=== PATIENT | female | born 1940 | race Caucasian/White ===

== ENCOUNTER 2017-12-02 18:05 | Observation (INO) ==
--- NOTE | 2017-12-02 18:14 | Emergency Department Note ---
Disposition Clinical Impression: Chest pain Disposition: Admitted As Inpatient Condition: Good Chest Pain HPI - General Chief Complaint: ED Chest Pain Stated Complaint: Midsternal chest pain onset 1 hour Time Seen by Provider: 12/02/17 18:05 Source: patient Mode of arrival: ambulatory Limitations: no limitations Vital Signs Reviewed: Yes Nursing Notes Reviewed: Yes - History of Present Illness HPI Narrative: Patient presents emergency department after being seen at the urgent care for 1 hour of chest pain. It is usually associated with eating a meal. She has had this for quite some time but never had it worked up. Today is a first time she has sought medical care for this chest pain. She denies any radiation of pain a station her midsternal region. She associates the pain with a hiatal hernia that she has had for some time and that the "spells' are getting worse. Onset (ago): hour(s) (1) Duration: constant Onset: during rest, after eating Pain Location: substernal Severity: moderate - Related Data Home Medications Medication Instructions Recorded Confirmed Fluticasone/Salmeterol [Advair 1 each IH BID 05/20/17 12/02/17 100-50 Diskus] Montelukast [Singulair] 10 mg PO DAILY 05/20/17 12/02/17 Nebivolol [Bystolic] 5 mg PO DAILY 05/21/17 12/02/17 Omeprazole [PriLOSEC] 40 mg PO DAILY 05/21/17 12/02/17 Propylene Glycol/Peg 400 [Systane 15 ml OP DAILY 05/21/17 12/02/17 0.3-0.4% Eye Drops] Triamterene/HCTZ 37.5/25mg 1 each PO DAILY 05/21/17 12/02/17 [Dyazide] Vit A/Vit C/Vit E/Zinc/Copper 1 each PO DAILY 05/21/17 12/02/17 [Preservision Areds Tablet] Vitamin E 1,000 unit PO DAILY 05/21/17 12/02/17 Aspirin 325 mg PO DAILY 06/18/17 12/02/17 Fluticasone Propionate Nasal 50 mcg NS DAILY 12/02/17 12/02/17 [Flonase] Meclizine 12.5 mg PO Q8H 12/02/17 12/02/17 Allergies Allergy/AdvReac Type Severity Reaction Status Date / Time lisinopril Allergy Hives Verified 12/02/17 18:15 metoprolol [From Lopressor] Allergy Rash Verified 12/02/17 18:15 [id number]-[id number]-[id number] Reductase Allergy Rash Verified 12/02/17 18:15 Inhibitor [Statins] All systems ED: reviewed and negative except as stated. Review of Systems: As Per HPI Constitutional: Denies: fever, chills, weakness, weight change Eyes: Denies: eye pain, eye discharge, vision change ENT ED: Denies: ear pain, throat pain, dental pain, hearing loss, epistaxis, congestion, dysphagia Cardiovascular: Reports: as per HPI, chest pain. Denies: palpitations, dyspnea on exertion, edema, syncope Respiratory: Denies: cough, dyspnea, wheezes, hemoptysis, stridor Gastrointestinal: Denies: abdominal pain, nausea, vomiting, diarrhea, constipation, hematemesis, melena, hematochezia Genitourinary: Denies: dysuria, frequency, hematuria, discharge Musculoskeletal: Denies: back pain, neck pain, arthralgia, myalgia Integumentary: Denies: rash, abrasion, lesions Neurological: Denies: headache, weakness, numbness, paresthesias, confusion, abnormal gait, vertigo Psychiatric: Denies: anxiety, depression, suicidal thoughts, homicidal thoughts , auditory hallucinations, visual hallucinations Endocrine: Denies: fatigue Hematological/Lymphatic: Denies: easy bleeding, easy bruising Allergic/Immunologic: Denies: facial swelling, urticaria Chest Pain PMH - Past Medical History Medical history: Reports: hypertension, other (elevated cholesterol) - Social History Smoking Status: Never smoker Alcohol use: Reports: none Physical Exam - General Limitations: no limitations General appearance: alert, in no apparent distress - Head Head exam: atraumatic, normocephalic, normal inspection - Eye Eye exam: Present: normal appearance, PERRL, EOMI - ENT ENT exam: normal exam, normal oropharynx, mucous membranes moist - Neck Neck exam: Present: normal inspection, full ROM, trachea midline - Chest Chest inspection: Present: normal inspection, symmetric chest wall rise - Respiratory Respiratory exam: Present: normal lung sounds bilaterally - Cardiovascular Cardiovascular exam: Present: regular rate, normal rhythm, normal heart sounds - Abdominal Exam Abdominal exam: Present: soft, Non-Tender. Absent: tenderness, distention, guarding, rebound, rigidity - Extremities Exam Extremities exam: Present: normal inspection, full ROM. Absent: tenderness, pedal edema - Back Exam Back exam: Present: normal inspection - Neurological Exam Neurological exam: Present: alert, oriented X3 - Psychiatric Psychiatric exam: Present: normal affect, normal mood - Skin Skin exam: Present: warm, dry, intact Chest Pain - MDM Narrative Medical decision making narrative: the case was discussed with Dr Bill and he accepts admit - Lab Data Lab results reviewed: Yes I reviewed the patient's lab results. - Radiology Data Radiology results reviewed: Yes I reviewed the patient's radiology results. - EKG Data EKG attestation: Yes I reviewed and interpreted this EKG. EKG results narrative: EKG shows a sinus rhythm rate of 89 bpm LA interval of 208 ms. R axis of -10 degrees QRS duration of 98 ms nonacute EKG per my read
[2017-12-02] MEDS ORDERED: 0.9 % Sodium Chloride 500 ML IVC SCH ×2 (18:15→22:09)
[2017-12-02] MEDS ORDERED: 0.9 % Sodium Chloride 1,000 ML ONE (18:23)
[2017-12-02] MEDS ORDERED: Nitroglycerin 0.4 MG TAB.SUBL SL ONE ×2 (18:25→22:09)
[2017-12-02 18:35] LABS: Basophils # 0.1 K/mcL (0.0-0.2); Basophils % 0.8 %; Eosinophils # 0.5 K/mcL (0.0-0.6); Eosinophils % 7.2 %; Hematocrit 38.8 % (35.3-44.9); Hemoglobin 12.6 g/dL (11.5-15.4); Immature Granulocytes % 0.3 % (0-4); Lymphocytes # 1.5 K/mcL (0.6-4.6); Lymphocytes % 20.2 %; Mean Corpuscular HGB Conc 32.5 g/dL (31.6-35.5); Mean Corpuscular Hemoglobin 29.4 pg (28.0-33.3); Mean Corpuscular Volume 90.7 fL (83.0-100.0); Mean Platelet Volume 9.9 fL (9.4-12.4); Monocytes # 0.8 K/mcL (0.0-1.3); Monocytes % 10.4 %; Neutrophils # 4.4 K/mcL (1.6-8.9); Platelet Count 296 K/mcL (140-400); Red Blood Count 4.28 M/mcL (3.82-4.97); Red Cell Distribution Width 14.4 % (11.5-14.5); Segmented Neutrophils % 61.1 %
[2017-12-02] MEDS: Nitroglycerin 0.4 MG TAB.SUBL SL PRN ×3 (18:35→18:58)
[2017-12-02] MEDS ORDERED: Ondansetron 4 MG/2 ML VIAL IVP ONE (18:39)
[2017-12-02 18:42] LABS: Prothrombin Time 10.4 Seconds (9.4-12.1)
[2017-12-02 18:45] LABS: Activated Partial Thrombo Time 28.9 Seconds (26.0-36.0)
[2017-12-02 18:49] LABS: BUN/Creatinine Ratio 20 (6-26); Blood Urea Nitrogen 33 mg/dL (8-23); Calcium 9.4 mg/dL (8.6-10.3); Carbon Dioxide 30 mEq/L (23-29); Chloride 102 mEq/L (98-107); Glucose 94 mg/dL (70-105); Osmolality,Calculated 297 (280-300); Potassium 3.5 mEq/L (3.5-5.1); Sodium 140 mEq/L (136-145); eGFR For African Americans 37 (> 60); eGFR For Non-African Americans 31 (> 60)
[2017-12-02 18:54] LABS: Troponin I < 0.03 ng/mL (< 0.04)
[2017-12-02] MEDS ORDERED: Nitroglycerin 0.4 MG TAB.SUBL SL PRN (22:09)
[2017-12-02] MEDS ORDERED: Naloxone 0.4 MG/ML INJ IVP PRN (22:09)
[2017-12-02] MEDS ORDERED: Ondansetron 4 MG/2 ML VIAL IVP PRN (22:15)
[2017-12-03] MEDS: Budesonide/Formoterol 80/4.5 MDI IH SCH ×2 (04:16→10:58)
[2017-12-03 06:47] LABS: Basophils # 0.1 K/mcL (0.0-0.2); Basophils % 0.9 %; Eosinophils # 0.6 K/mcL (0.0-0.6); Eosinophils % 7.9 %; Hematocrit 35.7 % (35.3-44.9); Hemoglobin 11.4 g/dL (11.5-15.4); Immature Granulocytes % 0.3 % (0-4); Lymphocytes # 1.6 K/mcL (0.6-4.6); Lymphocytes % 22.9 %; Mean Corpuscular HGB Conc 31.9 g/dL (31.6-35.5); Mean Corpuscular Hemoglobin 29.2 pg (28.0-33.3); Mean Corpuscular Volume 91.3 fL (83.0-100.0); Mean Platelet Volume 9.8 fL (9.4-12.4); Monocytes # 0.7 K/mcL (0.0-1.3); Monocytes % 10.4 %; Platelet Count 271 K/mcL (140-400); Red Blood Count 3.91 M/mcL (3.82-4.97); Red Cell Distribution Width 14.4 % (11.5-14.5); Segmented Neutrophils % 57.6 %
[2017-12-03 07:22] LABS: Potassium 3.4 mEq/L (3.5-5.1)
[2017-12-03] MEDS ORDERED: Fluticasone Propionate Nasal 50 MCG/SPRAY BOTTLE NS SCH (09:00)
[2017-12-03] MEDS ORDERED: Multivit/Ca/Min/Fe/FA 1 TAB TABLET PO SCH (09:00)
[2017-12-03] MEDS ORDERED: Artificial Tears SOLN 15 ML BOTTLE OP SCH (09:00)
[2017-12-03] MEDS ORDERED: Aspirin 325 MG TABLET PO SCH (09:00)
[2017-12-03 10:09] VITALS: BP 114/66
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
--- NOTE | 2017-12-03 12:15 | Discharge Summary ---
Date of Encounter: 12/03/17 Time of Encounter: 11:30 - Discharge Diagnosis (1) Chest pain Priority: Primary Status: Resolved Qualifiers: Chest pain type: unspecified Qualified Code(s): R07.9 - Chest pain, unspecified (2) GERD (gastroesophageal reflux disease) Priority: Secondary Status: Chronic Qualifiers: Esophagitis presence: esophagitis presence not specified Qualified Code(s) : K21.9 - Gastro-esophageal reflux disease without esophagitis (3) CKD (chronic kidney disease) stage 3, GFR 30-59 ml/min Priority: Secondary Status: Chronic Hospital course: Ms. Hammer is a 77 year old female who came to emergency room stating she had discomfort in her chest and episodes of vomiting after taking a few bites of her supper. She describes a sensation as food "sticking" on attempting to traverse the esophagus into the stomach. When symptoms persisted she went to urgent care. She was directed to [facility] emergency room. She was evaluated and admitted to [facility] for ongoing care needs. Initial orders were written by the emergency room physician. I saw her on December 03 and performed a history physical and discharge. Repeat cardiac enzymes showed no evidence of myocardial damage. When I saw her I felt the discomfort was likely be of GI origin. I told her she should discuss with her PCP about referral for EGD to rule out esophageal damage from long-standing GERD. Further adjustments in anti-reflux medication and/or referral for surgical intervention could be done as needed. She will follow with her PCP Dr. John Tucker within 1 week. - Time Spent with Patient Total time spent providing and/or coordinating discharge services: - Discharge Medications Home Medications: Fluticasone/Salmeterol [Advair 100-50 Diskus] 1 each IH BID 05/20/17 [History] Montelukast [Singulair] 10 mg PO DAILY 05/20/17 [History] Nebivolol [Bystolic] 5 mg PO DAILY 05/21/17 [History] Omeprazole [PriLOSEC] 40 mg PO DAILY 05/21/17 [History] Propylene Glycol/Peg 400 [Systane 0.3-0.4% Eye Drops] 15 ml OP DAILY 05/21/17 [ History] Triamterene/HCTZ 37.5/25mg [Dyazide] 1 each PO DAILY 05/21/17 [History] Vit A/Vit C/Vit E/Zinc/Copper [Preservision Areds Tablet] 1 each PO DAILY [History] Vitamin E 1,000 unit PO DAILY 05/21/17 [History] Aspirin 325 mg PO DAILY 06/18/17 [History] Fluticasone Propionate Nasal [Flonase] 50 mcg NS DAILY 12/02/17 [History] Meclizine 12.5 mg PO Q8H 12/02/17 [History] Allergies/Adverse Reactions: 3 Allergy/AdvReac Type Severity Reaction Status Date / Time lisinopril Allergy Hives Verified 12/02/17 18:15 metoprolol [From Lopressor] Allergy Rash Verified 12/02/17 18:15 [id number]-[id number]-Btj Reductase Allergy Rash Verified 12/02/17 18:15 Inhibitor [Statins] Date of admission: 12/02/17 19:58 Primary care physician: Niko Tucker MD - Constitutional Vitals: Temp Pulse Resp BP Pulse Ox 98.2 F 72 16 114/66 95 12/03/17 10:07 12/03/17 10:07 12/03/17 10:07 12/03/17 10:07 12/03/17 10:07 - Patient Status Disposition: Home, Self-Care Condition: Good Functional capacity at discharge: independent ambulation Overall status at discharge: patient is back to baseline - Discharge Instructions Follow Up With: Niko Tucker MD [Primary Care Provider] - - Diet and Activity Activity: resume usual activities as tolerated Diet: advance to your usual diet
--- NOTE | 2017-12-03 23:05 | Electrocardiograph Report ---
[place] [employer] Test Date: 2017-12-02 Pat Name: Lane Hammer Department: [id number] Room: [facility] Gender: F Cigar Brander: VÍCTOR : 1940 Requested By: Angel Call Order Number: [id number] Reading MD: Gee Sharp Measurements Intervals [place] Rate: 85 P: 27 ME: 201 QRS: -11 QRSD: 97 T: 70 QT: 375 QTc: 417 Interpretive Statements SINUS RHYTHM LEFT VENTRICULAR HYPERTROPHY AND ST-T CHANGE POSSIBLE SEPTAL MYOCARDIAL INFARCTION, PROBABLY OLD Electronically Signed On 12-03-2017 23:04:01 EDT by Gee Sharp
== END 2017-12-03 13:45 | disposition home or self-care (01) ==
LOC: INPPIK 18:05 → EMEROOPIK 18:05 → INPPIK 20:35
PROVIDERS: ADMIT Internal Medicine; ATTEND Internal Medicine